=== PATIENT | male | born 1960 | race Caucasian/White ===

== ENCOUNTER 2020-05-10 10:58 | Day surgery (SDC) | payer OTHER, SELFPAY ==
--- NOTE | 2020-05-09 10:33 | HO.ANESPROP2 ---
Documented by User: Latrice Stroud 05/09/20 10:34 HPI - Anesthesia Eval Consult details Narrative: 59yo M for Colonoscopy [facility] Past Medical History Medical History Hypertension Obesity RYANN on CPAP Surgical History Surgical History History of umbilical hernia repair Hx of colonoscopy Hx of tonsillectomy Social History Social History Smoking Status: Never smoker Second Hand Smoke Exposure: No Use of substances other than those prescribed or required for medical reasons: No Advance Directives: No Advance Directives Information Provided: Yes Meds Allergies Allergy/AdvReac Type Severity Reaction Status Date / Time No Known Allergies Allergy Verified 05/10/20 11:32 [No Known Allergies*] Home Medications Medication Instructions Recorded Confirmed Last Taken Type amlodipine mg PO DAILY 05/03/20 05/10/20 07:00 History modafinil 1 tab PO DAILY 05/03/20 05/03/20 Unknown History Vitamin D3 05/10/20 05/10/20 Unknown History Exam Exam Date and Time: May 09, 2020 1033 Assessment and Plan Assessment Anesthesia Assessment: Chart Reviewed Documented by User: Yuly Tran 05/10/20 12:09 [facility] Past Medical History Medical History Hypertension Obesity RYANN on CPAP Surgical History Surgical History History of umbilical hernia repair Hx of colonoscopy Hx of tonsillectomy Social History Social History Smoking Status: Never smoker Second Hand Smoke Exposure: No Use of substances other than those prescribed or required for medical reasons: No Advance Directives: No Advance Directives Information Provided: Yes Meds Allergies Allergy/AdvReac Type Severity Reaction Status Date / Time No Known Allergies Allergy Verified 05/10/20 11:32 [No Known Allergies*] Home Medications Medication Instructions Recorded Confirmed Last Taken Type amlodipine mg PO DAILY 05/03/20 05/10/20 07:00 History modafinil 1 tab PO DAILY 05/03/20 05/03/20 Unknown History Vitamin D3 05/10/20 05/10/20 Unknown History Exam Airway Mallampati Class: II Neck ROM: Full Heart: RRR Lungs: CTA Assessment and Plan Assessment Anesthesia Assessment: Anesthesia Plan Discussed and Chart Reviewed Final Anesthetic Review NPO: Yes ASA Class: III Final Preanesthetic Review: Meds/Allgs Chart Reviewed, Consent Obtained/Reviewed and Anes Risks/Benef Reviewed Patient Risk: Intermediate Procedure Risk: Low Anesthetic Plan Anesthetic Plan: MAC: Disposition: Standard PACU
[2020-05-10 11:35] VITALS: BP 145/91; PULSE 68; RESP 16; TEMP 36.6; O2SAT 97; BMI 39.7
[2020-05-10] MEDS: Lactated Ringers 1,000 ML 100 ML IVCONT (11:43)
[2020-05-10 13:38] VITALS: BP 112/72; PULSE 62; RESP 16; TEMP 35.9; O2SAT 95
--- NOTE | 2020-05-10 13:42 | PM.OP ---
Brief Operative Note Date of Service: 05/10/20 Pre-op diagnosis: Screening Post-op diagnosis: other (Colon polyps) Procedure: Colonoscopy to cecum and TI with biopsy and removal of polyp, and snare polypectomy Surgeon: Matti Mancuso Anesthesia: MAC Estimated blood loss (mL): 3.0 Pathology: other (A. Cecal polyp B. Proximal ascending colon polyp) Condition: stable Disposition: PACU
[2020-05-10 13:53] VITALS: BP 122/76; PULSE 53; RESP 14; TEMP 35.9; O2SAT 97
--- NOTE | 2020-05-10 13:57 | OP_ITS ---
SURGEON: Matti Mancuso MD INDICATIONS: The patient presents for evaluation of colorectal cancer screening and prior history of tubular adenoma of the colon. Full consent has been obtained from him for this, including risks of bleeding and perforation. PREOPERATIVE DIAGNOSIS: POSTOPERATIVE DIAGNOSIS: PROCEDURE PERFORMED: Colonoscopy to cecum and terminal ileum with snare polypectomy, and biopsy and removal of polyp. ESTIMATED BLOOD LOSS: COMPLICATIONS: ANESTHESIA: Monitored anesthesia care. ASSISTANTS: SPECIMENS: PREOPERATIVE DIAGNOSES: Colorectal cancer screening and personal history of tubular adenoma of the colon. POSTOPERATIVE DIAGNOSES: Colorectal cancer screening and personal history of tubular adenoma of the colon, small colon polyps, diverticulosis and internal hemorrhoids. DESCRIPTION OF PROCEDURE: The patient was placed in the left lateral decubitus position. The digital rectal exam revealed no abnormalities. The Olympus video pediatric colonoscope was entered into the rectum and advanced easily to the cecum. Once in the cecum, I did identify cecal pouch with appendiceal orifice and a normal-appearing ileocecal valve. The terminal ileum was cannulated and appeared normal. The scope was withdrawn back in the colon. The entire cecum and ileocecal valve were well visualized. In the cecum, was a 3 mm polyp, which was biopsied and completely removed with cold biopsy forceps. The remainder of the cecum appeared normal. The scope was then slowly withdrawn assessing all mucosal surfaces carefully. Preparation was excellent. In the very proximal ascending colon, was a flat, but raised approximately 10 mm polyp, which was snared and recovered by suction. The polypectomy site appeared clean, without any sign of residual polyp nor bleeding. I did not visualize any other polyps, colitis, nor angiodysplasia. There was a mild amount of sigmoid diverticulosis. In the rectum, scope was retroflexed visualizing internal hemorrhoids, but no other pathology. The rectal mucosa appeared normal. The scope was straightened out and withdrawn from the patient. He tolerated the procedure well and was returned to recovery area in stable condition. IMPRESSION: 1. Colon polyps, status post snare polypectomy, and biopsy and removal. 2. Diverticulosis. 3. Internal hemorrhoids. PLAN: The results of the pathology will be checked. I would recommend a repeat colonoscopy in 5 years for further screening. He will otherwise see me on a p.r.n. basis. He was advised not to use any aspirin and NSAIDs for 1 week. MD DAVID Encinas/SUSIE / [id number]
== END 2020-05-10 14:41 | disposition home or self-care (01) ==
PROVIDERS: PCP Internal Medicine; Visit Provider Internal Medicine
PROC: 0DJD8ZZ Inspection of Lower Intestinal Tract, Via Natural or Artificial Opening Endoscopic (ICD-10-PCS; CPT 45378; principal; 2020-05-10 12:00)
DX: Z12.11 Encounter for screening for malignant neoplasm of colon (principal); Z86.010 Personal history of colon polyps; D12.0 Benign neoplasm of cecum; D12.2 Benign neoplasm of ascending colon; K57.30 Diverticulosis of large intestine without perforation or abscess without bleeding; K64.8 Other hemorrhoids; I10 Essential (primary) hypertension; G47.33 Obstructive sleep apnea (adult) (pediatric); E66.9 Obesity, unspecified; Z79.899 Other long term (current) drug therapy; Z99.89 Dependence on other enabling machines and devices
CPT/HCPCS: 45385; 45380; 88305